=== PATIENT | male | born 1955 | race Two or more races ===

== ENCOUNTER 2016-10-09 17:42 | Emergency (ER) | payer BC ==
[~2016-10-09 17:42] MED LIST: ASPI-986; ATOR20TA; PRAS5TAB3
== END 2016-10-09 18:22 | disposition left against medical advice (07) ==
LOC: ER 18:02
DX: Z53.21 Procedure and treatment not carried out due to patient leaving prior to being seen by health care provider (principal)

== ENCOUNTER → 2016-11-15 | Outpatient (CLI) | payer BC ==
[2016-11-15 17:05] LABS: BASOPHILS % 0.4 % (0.0-2.0); HEMATOCRIT. 43.4 % (42.0-52.0); HEMOGLOBIN. 14.9 g/dL (14.0-18.0); LYMPHOCYTES % 28.3 % (20.0-50.0); MEAN CORPUSCULAR HEMOGLOBIN 30.6 pg (28.0-32.0); MEAN CORPUSCULAR VOLUME 88.8 fL (80.0-94.0); MEAN PLATELET VOLUME 8.9 fl (7.4-10.4); MONOCYTES % 9.1 % (2.0-8.0); NEUTROPHILS % 57.2 % (40.0-76.0); PLATELET 192 x1000/uL (130-400); RED BLOOD CELL COUNT 4.89 mill/uL (4.7-6.1); RED CELL DISTRIBUTION WIDTH 13.8 % (11.6-14.6)
[2016-11-15 17:10] LABS: CLARITY URINE CLEAR (CLEAR); COLOR URINE YELLOW (YELLOW); GLUCOSE URINE NEGATIVE (NEGATIVE); KETONES URINE NEGATIVE (NEGATIVE); LEUKOCYTE ESTERASE URINE NEGATIVE (NEGATIVE); NITRITE URINE NEGATIVE (NEGATIVE); OCCULT BLOOD URINE NEGATIVE (NEGATIVE); PROTEIN URINE NEGATIVE (NEGATIVE); SPECIFIC GRAVITY URINE 1.017 (1.005-1.030); UROBILINOGEN URINE 0.2 E.U./dL (0.2-1.0)
[2016-11-15 17:22] LABS: CARBON DIOXIDE 25 mEq/L (21-32); CHLORIDE 108 mEq/L (98-107); HDL CHOLESTEROL 50 mg/dL (40-59); LDL CHOLESTEROL 115 mg/dL (5-100); T4 FREE 0.98 ng/dL (0.76-1.46)
[2016-11-15 23:52] LABS: FOLIC ACID (FOLATE) SERUM 15.1 ng/mL (>5.38)
[2016-11-17 09:06] LABS: RF PROFILE < 10.0 IU/mL (0.0-13.9)
[2016-11-17 10:06] LABS: ANTI-NUCLEAR ANTIBODIES DIRECT Negative (Negative)
[2016-11-18 17:18] LABS: VITAMIN D 25-OH 24.3 ng/mL (30.0-100.0)
[2016-11-18 19:10] LABS: CCP IgG/IgA PROFILE 5 units (0-19)
[2016-11-21 13:09] LABS: METHYLMALONIC ACID 164 nmol/L (0-378)
== END | disposition home or self-care (01) ==
LOC: LAB 15:48
PROVIDERS: ATTEND Internal Medicine Endocrinology, Diabetes & Metabolism
DX: E78.5 Hyperlipidemia, unspecified (principal); R73.9 Hyperglycemia, unspecified; M10.9 Gout, unspecified; G62.9 Polyneuropathy, unspecified; N13.70 Vesicoureteral-reflux, unspecified
CPT/HCPCS: 36415; 80053; 80061; 81003; 82306; 82607; 82746; 83036; 83921; 84439; 84443; 84550; 85025; 85651; 86038; 86200; 86431; 87086

== ENCOUNTER → 2020-07-20 | Outpatient (CLI) | payer BC ==
[2020-07-20 16:44] LABS: BASOPHILS % 0.6 % (0.0-2.0); EOSINOPHILS % 3.9 % (0.0-5.0); HEMATOCRIT. 42.6 % (42.0-52.0); HEMOGLOBIN. 14.5 g/dL (14.0-18.0); LYMPHOCYTES % 25.7 % (20.0-50.0); MEAN CORPUSCULAR HEMOGLOBIN 30.6 pg (28.0-32.0); MEAN CORPUSCULAR VOLUME 89.9 fL (80.0-94.0); MEAN PLATELET VOLUME 8.4 fl (7.4-10.4); MONOCYTES % 9.2 % (2.0-8.0); NEUTROPHILS % 60.6 % (40.0-76.0); PLATELET 170 x1000/uL (130-400); RED BLOOD CELL COUNT 4.73 mill/uL (4.7-6.1); RED CELL DISTRIBUTION WIDTH 13.7 % (11.6-14.6)
[2020-07-20 17:04] LABS: CHLORIDE 107 mEq/L (98-107)
[2020-07-20 17:13] LABS: LDL CHOLESTEROL 74 mg/dL (5-100)
[2020-07-20 17:14] LABS: HDL CHOLESTEROL 53 mg/dL (40-59)
[2020-07-22 04:08] LABS: VITAMIN D 25-OH 52.6 ng/mL (30.0-100.0)
== END | disposition home or self-care (01) ==
LOC: LAB 16:14
PROVIDERS: ATTEND Specialist
DX: I25.10 Atherosclerotic heart disease of native coronary artery without angina pectoris (principal); R07.9 Chest pain, unspecified
CPT/HCPCS: 36415; 80053; 80061; 82306; 83036; 84436; 84443; 84550; 85025

== ENCOUNTER → 2020-08-03 | Outpatient (CLI) | payer BC ==
[~2020-08-03] VITALS: Ht 172.7 cm; Wt 83.9 kg
[~2020-08-03] MED LIST changes: +IOHEXOL-350 100 ML BOTTLE ONE; +NITROGLYCERIN 0.4MG TABLET SL SL SCH
== END | disposition home or self-care (01) ==
LOC: CT 09:30
PROVIDERS: ATTEND Specialist
DX: Z13.6 Encounter for screening for cardiovascular disorders (principal); I25.10 Atherosclerotic heart disease of native coronary artery without angina pectoris
CPT/HCPCS: 75571; Q9967; Z7610

== ENCOUNTER → 2020-10-25 | Outpatient (CLI) | payer BC ==
[~2020-10-25] MED LIST changes: -IOHEXOL-350 100 ML BOTTLE ONE; -NITROGLYCERIN 0.4MG TABLET SL SL SCH
== END | disposition home or self-care (01) ==
LOC: RAD 16:07
PROVIDERS: ATTEND Internal Medicine Endocrinology, Diabetes & Metabolism
DX: M25.522 Pain in left elbow (principal)
CPT/HCPCS: 73080